=== PATIENT | female | born 1975 | race Caucasian/White ===

== ENCOUNTER 2018-11-12 15:11 | Outpatient (CLI) | payer BC ==
[2018-11-12] MEDS ORDERED: IOVERSOL 320 100 ML VIAL IVP ONE (15:23)
[2018-11-12] MEDS: IOVERSOL 320 100 ML VIAL IVP ONE (15:35)
--- NOTE | 2018-11-13 04:08 | CT Report ---
Reason: HEMATURIA Procedure Date: 11/12/2018 Accession Number: [id number] / [id number] Procedure: CT - IVP CPT Code: FULL RESULT: EXAM: CT ABDOMEN AND PELVIS WITHOUT AND WITH CONTRAST (CT IVP) EXAM DATE: 11/12/2018 03:37 PM. CLINICAL HISTORY: Hematuria. COMPARISONS: None. TECHNIQUE: Routine helical imaging was performed through the kidneys, ureters and bladder in the precontrast, postcontrast and delayed phase. IV Contrast: Yes. Reconstructions: Coronal and sagittal. In accordance with CT protocol optimization, one or more of the following dose reduction techniques were utilized for this exam: automated exposure control, adjustment of mA and/or KV based on patient size, or use of iterative reconstructive technique. FINDINGS: Lung Bases: Unremarkable. Right Kidney/Ureter: No stones, hydronephrosis, or solid-appearing masses. Left Kidney/Ureter: No stones, hydronephrosis, or solid-appearing masses. Other Abdominal Organs: The liver, spleen, pancreas, gallbladder, and adrenal glands are unremarkable. Peritoneal Cavity/Bowel: No free fluid, free air or adenopathy. No masses. Bowel loops appear unremarkable. Pelvic Organs: Urinary bladder calculus measuring 11 x 11 mm, image 83 series 4. No bladder mass is identified. The visualized pelvic organs are unremarkable. Vasculature: Normal. Bones: No acute abnormality. Moderate to severe L4-L5 disk level degenerative changes. Other: Small fat-containing periumbilical hernia without apparent complication. IMPRESSION: 1. Approximately 11 mm urinary bladder calculus. 2. No urinary tract solid masses, renal collecting system stones, or obstruction. RAD[facility]
== END 2018-11-12 15:12 | disposition home or self-care (01) ==
LOC: DI 15:11
PROVIDERS: ATTEND Student in an Organized Health Care Education/Training Program
DX: N21.0 Calculus in bladder (principal); R31.9 Hematuria, unspecified
CPT/HCPCS: 74178; Q9967

== ENCOUNTER 2020-01-25 15:28 | Outpatient (CLI) | payer BC, OTHER ==
[2020-01-25 18:43] LABS: BASOPHILS % (AUTO) 0.5 %; EOSINOPHILS # (AUTO) 0.1 10^3/uL (0.0-0.7); EOSINOPHILS % (AUTO) 1.8 %; HGB - HEMOGLOBIN 13.6 g/dL (12.0-16.0); LYMPHOCYTES # (AUTO) 1.5 10^3/uL (1.5-3.5); LYMPHOCYTES % (AUTO) 24.2 %; MEAN CORPUSCULAR HEMOGLOBIN 28.8 pg (27.0-31.0); MEAN CORPUSCULAR HGB CONC 32.8 g/dL (32.0-36.0); MEAN CORPUSCULAR VOLUME 87.9 fL (81.0-99.0); MEAN PLATELET VOLUME 9.8 fL (7.9-10.8); MONOCYTES # (AUTO) 0.4 10^3/uL (0.0-1.0); MONOCYTES % (AUTO) 6.6 %; NEUTROPHILS % (AUTO) 66.4 %; PLT - PLATELET COUNT 205 10^3/uL (130-450); RED BLOOD COUNT 4.72 10^6/uL (4.20-5.40); RED CELL DISTRIBUTION WIDTH 12.2 % (12.0-15.0); WHITE BLOOD COUNT 6.1 x10^3/uL (4.8-10.8)
[2020-01-25 19:14] LABS: ALBUMIN 4.5 g/dL (3.2-5.5); ALBUMIN/GLOBULIN RATIO 1.4 (1.0-2.2); ALKALINE PHOSPHATASE 73 IU/L (42-121); ALT ALANINE AMINOTRANSFERASE 22 IU/L (10-60); AST ASPARTATE AMINOTRANSFERASE 24 IU/L (10-42); BILIRUBIN,TOTAL 1.7 mg/dL (0.2-1.0); BUN - BLOOD UREA NITROGEN 15 mg/dL (6-20); CALCIUM 9.7 mg/dL (8.5-10.3); CARBON DIOXIDE - CO2 26 mmol/L (21-32); CHLORIDE 103 mmol/L (101-111); CHOL/HDL RATIO 3.2 (<4.4); CHOLESTEROL 217 mg/dL; CREATININE 0.7 mg/dL (0.4-1.0); GLUCOSE 84 mg/dL (70-100); HDL CHOLESTEROL 68 mg/dL; LDL CHOLESTEROL,CALCULATED 136 mg/dL; SODIUM 138 mmol/L (135-145); TOTAL PROTEIN 7.7 g/dL (6.7-8.2); VLDL CHOLESTEROL 13 mg/dL
== END 2020-01-25 15:29 | disposition home or self-care (01) ==
LOC: LAB.WCP 15:28
PROVIDERS: ATTEND Physician Assistant
DX: Z00.00 Encounter for general adult medical examination without abnormal findings (principal)
CPT/HCPCS: 36415; 80053; 80061; 83721; 84443; 85025

== ENCOUNTER 2022-01-01 09:52 | Outpatient (CLI) | payer OTHER ==
[2022-01-01 12:04] LABS: BASOPHILS % (AUTO) 0.6 %; EOSINOPHILS # (AUTO) 0.2 10^3/uL (0.0-0.7); EOSINOPHILS % (AUTO) 3.1 %; HCT - HEMATOCRIT 39.8 % (37.0-47.0); HGB - HEMOGLOBIN 13.6 g/dL (12.0-16.0); LYMPHOCYTES # (AUTO) 1.2 10^3/uL (1.5-3.5); LYMPHOCYTES % (AUTO) 23.7 %; MEAN CORPUSCULAR HGB CONC 34.2 g/dL (32.0-36.0); MEAN CORPUSCULAR VOLUME 84.9 fL (81.0-99.0); MEAN PLATELET VOLUME 9.8 fL (7.9-10.8); MONOCYTES # (AUTO) 0.4 10^3/uL (0.0-1.0); MONOCYTES % (AUTO) 6.9 %; NEUTROPHILS # (AUTO) 3.4 10^3/uL (1.5-6.6); NEUTROPHILS % (AUTO) 65.5 %; PLT - PLATELET COUNT 192 10^3/uL (130-450); RED BLOOD COUNT 4.69 10^6/uL (4.20-5.40); RED CELL DISTRIBUTION WIDTH 12.6 % (12.0-15.0); WHITE BLOOD COUNT 5.2 x10^3/uL (4.8-10.8)
[2022-01-01 12:32] LABS: ALBUMIN 4.3 g/dL (3.2-5.5); ALBUMIN/GLOBULIN RATIO 1.5 (1.0-2.2); ALKALINE PHOSPHATASE 58 IU/L (42-121); ALT ALANINE AMINOTRANSFERASE 18 IU/L (10-60); AST ASPARTATE AMINOTRANSFERASE 22 IU/L (10-42); BILIRUBIN,TOTAL 1.1 mg/dL (0.2-1.0); BUN - BLOOD UREA NITROGEN 12 mg/dL (6-20); CALCIUM 9.3 mg/dL (8.5-10.3); CARBON DIOXIDE - CO2 26 mmol/L (21-32); CHLORIDE 103 mmol/L (101-111); CHOL/HDL RATIO 3.5 (<4.4); CHOLESTEROL 203 mg/dL; CREATININE 0.9 mg/dL (0.4-1.0); GFR - MDRD 67 (>89); GLUCOSE 89 mg/dL (70-100); HDL CHOLESTEROL 58 mg/dL; LDL CHOLESTEROL,CALCULATED 134 mg/dL; LDL/HDL RATIO 2.3 (<4.4); POTASSIUM 4.4 mmol/L (3.5-5.0); SODIUM 136 mmol/L (135-145); TOTAL PROTEIN 7.1 g/dL (6.7-8.2); TRIGLYCERIDES 54 mg/dL; VLDL CHOLESTEROL 11 mg/dL
[2022-01-01 12:43] LABS: THYROID STIMULATING HORMONE 4.6 uIU/mL (0.34-5.60)
== END 2022-01-01 09:53 | disposition home or self-care (01) ==
LOC: LAB.N 09:52
PROVIDERS: ATTEND Nurse Practitioner Family
DX: Z00.00 Encounter for general adult medical examination without abnormal findings (principal)
CPT/HCPCS: 36415; 80053; 80061; 83721; 84443; 85025

== ENCOUNTER 2022-07-22 16:15 | Outpatient (CLI) | payer OTHER ==
--- NOTE | 2022-07-23 09:27 | Ultrasound Report ---
PROCEDURE: Ext Limited Non Vascular INDICATIONS: RIGHT KNEE TYLER CYST TECHNIQUE: Real-time scanning was performed of the right popliteal fossa, with image documentation. COMPARISON: None. FINDINGS: No significant sonographic abnormality is seen in the area of pain in the right popliteal fossa. No medial popliteal cyst identified. IMPRESSION: No medial popliteal cyst is seen sonographically. Reviewed by: Clint Alvarez MD on 07/23/2022 9:26 AM PST Approved by: Clint Alvarez MD on 07/23/2022 9:26 AM PST Station ID: [id number]
== END 2022-07-22 16:16 | disposition home or self-care (01) ==
LOC: DI 16:15
PROVIDERS: ATTEND Physician Assistant
DX: M25.561 Pain in right knee (principal)

== ENCOUNTER 2023-04-20 11:29 | Outpatient (CLI) | payer OTHER ==
--- NOTE | 2023-04-21 08:53 | XRAY Report ---
PROCEDURE: Foot 3 View LT INDICATIONS: CONTUSION OF LEFT FOOT,INITIAL ENCOUNTER TECHNIQUE: 3 views of the foot were acquired. COMPARISON: None. FINDINGS: Bones: Subtle lucency at the base of the first metatarsal. Soft tissues: No suspicious soft tissue calcifications or masses. IMPRESSION: Subtle lucency at the base of the first metatarsal. Differential diagnoses are degenerative change , artifact, or nondisplaced fracture. Recommend correlation with focal pain and tenderness. If clinical ly indicated, consider a follow-up exam in 7-10 days or advanced imaging such as CT or MRI. Reviewed by: Avtar Benavides MD on 04/21/2023 8:50 AM PST Approved by: Avtar Benavides MD on 04/21/2023 8:50 AM PST Station ID: [id number]
== END 2023-04-20 11:30 | disposition home or self-care (01) ==
LOC: DI 11:29
PROVIDERS: ATTEND Family Medicine
DX: S90.32XA Contusion of left foot, initial encounter (principal)

== ENCOUNTER 2023-05-06 16:21 | Outpatient (CLI) | payer OTHER ==
--- NOTE | 2023-05-07 11:13 | MRI Report ---
PROCEDURE: FOOT WO - LT INDICATIONS: CONTUSION OF LEFT FOOT TECHNIQUE: Noncontrast sagittal T1 spin echo and T2 fast spin echo with fat saturation, long-axis T1 spin echo a nd T2 fast spin echo with fat saturation, short-axis proton density fast spin echo and T2 fast spin e cho with fat saturation through the forefoot. COMPARISON: None. FINDINGS: Image quality: Excellent. There is increased marrow edema and areas of decreased signal noted on T1 weighted imaging involving the cuboid bone most prominent distally. Imaging findings are most consistent with the a nondisplaced stress fracture. Clinical correlation is recommended. There is also a similar appearance within the visualized portions of the distal talus also worrisome for stress fracture. There is also a minimal area of increased signal and edema within the base of the patient's left fift h metatarsal which may represent stress reaction. Marrow signal in the remaining visualized bones appears within normal limits. No loculated fluid dre ections or soft tissue masses are seen. No significant degenerative changes are present. Musculature appears within normal limits. IMPRESSION: 1. Abnormal marrow signal within the cuboid bone and visualized portions of the talus suggestive of s tress fractures. Clinical correlation is recommended. 2. Small area of reactive marrow edema involving the base of the patient's left fifth metatarsal whic h may represent stress reaction. Reviewed by: Eddy Gramajo MD on 05/07/2023 11:12 AM PST Approved by: Eddy Gramajo MD on 05/07/2023 11:12 AM PST Station ID: [id number]
== END 2023-05-06 16:22 | disposition home or self-care (01) ==
LOC: DI 16:21
PROVIDERS: ATTEND Family Medicine
DX: S90.32XA Contusion of left foot, initial encounter (principal); R93.6 Abnormal findings on diagnostic imaging of limbs